=== PATIENT | female | born 1970 | race Caucasian/White ===

== ENCOUNTER 2016-12-10 13:57 | Inpatient (IN) | payer SELFPAY ==
[~2016-12-10] VITALS: Ht 160 cm; Wt 58.6 kg
[2016-12-10] MEDS ORDERED: SODIUM CHLORIDE 0.9% 1000ML 1,000 ML IV STA (14:34)
[2016-12-10] MEDS ORDERED: ONDANSETRON INJ 2 MG/ML 2 ML VIAL IV STA (14:34)
[2016-12-10] MEDS ORDERED: OPTIRAY 320 IV PRN (14:45)
--- NOTE | 2016-12-10 14:45 | EMERGENCY ROOM VISIT NOTE ---
History Report prepared by Lawsonibdorys: Manda Nguyen Under the Supervision of: Dr. Julio Cesar Arthur D.O. First contact with patient: 14:27 Chief Complaint: FALL Stated Complaint: PAIN W/BREATHING, FELL DOWNSTAIRS History of Present Illness The patient is a 46 year old female who presents to the Emergency Room with complaints of a fall that occurred last night. She reports she fell down her basement steps while holding a basket of laundry. Since then, she has been having increased right sided rib pain and pain with breathing. She denies hitting her head during the fall, any loss of consciousness, or sustaining any other injuries. She denies any headache, neck pain, abdominal pain, nausea or vomiting. She also complains of some right sided rib pain, but notes she can still walk normally. She denies any dizziness with standing. She denies any chance of being and states she is currently on her menstrual period. The patient does have a history of asthma but does not take daily medications for it. She is an occasional cigarette smoker. Source of History: patient Onset: last night Position: other (global) Timing: resolved Associated Symptoms: No LOC, No abdominal pain, No headache, No nausea, No neck pain, No vomiting Review of Systems See HPI for pertinent positives & negatives. A total of 10 systems reviewed and were otherwise negative. Past Medical & Surgical Medical Problems: (1) Asthma Social History Smoking Status: Current Some Day Smoker Alcohol Use: occasionally Drug Use: none Marital Status: Housing Status: lives with family Occupation Status: employed Current/Historical Medications Scheduled Albuterol Hfa (Ventolin Hfa), 2-4 PUFFS INH Q6H Docusate Sodium (Colace), 1 CAP PO BID Sulfamethoxazole-Trimethoprim (Bactrim Ds 800MG/160MG), 1 TAB PO BID Scheduled PRN Oxycodone/Acetaminophen 5MG/325MG (Percocet 5MG/325MG), 1-2 TABLETS PO Q4H PRN for Pain Allergies Coded Allergies: No Known Allergies (Unverified , 12/10/16) Physical Exam Vital Signs Date Time Temp Pulse Resp B/P Pulse Ox O2 Delivery O2 Flow Rate FiO2 12/10/16 16:28 71 18 136/84 93 Room Air 12/10/16 15:44 86 18 149/89 97 Non-Rebreather 15.0 12/10/16 15:44 98 Non-Rebreather 15.0 12/10/16 15:04 79 12/10/16 15:01 90 18 141/98 96 Room Air 12/10/16 14:02 36.7 96 18 113/73 96 Room Air Physical Exam GENERAL: Patient is awake, alert, very anxious and uncomfortable appearing. EYES: The conjunctivae are clear. The pupils are round and reactive. EARS, NOSE, MOUTH AND THROAT: The nose is without any evidence of any deformity. Mucous membranes are moist tongue is midline NECK: The neck is nontender and supple. RESPIRATORY: Splinting respirations noted, diminished breath sounds in the right lung field, mild tachypnea noted. CARDIOVASCULAR: Regular rate and rhythm noted there no murmurs rubs or gallops normal S1 normal S2 CHEST: Exquisite tenderness to right lateral chest wall. GASTROINTESTINAL: The abdomen is soft. Bowel sounds are present in all quadrants. RUQ tenderness to palpation, no guarding or rigidity noted. PELVIS: The Pelvis is stable. No tenderness to palpation is noted. BACK: No midline tenderness or or step-off noted range of motion in flexion extension as well as rotation no signs of muscle spasm noted MUSCULOSKELETAL/EXTREMITIES: There is no evidence of gross deformity full range of motion is noted in the hips and shoulders SKIN: There is no obvious evidence of any rash. There are no petechiae, pallor or cyanosis noted. NEUROLOGIC: Patient is awake alert and oriented x3 strength is symmetric patellar reflexes are 2+ bilaterally Medical Decision & Procedures ER Provider Diagnostic Interpretation: This CT scan was reviewed and interpreted by the radiologist and reviewed by myself. CHEST, ABDOMEN, AND PELVIS CT WITH CONTRAST IMPRESSION: 1. Large right-sided pneumothorax. No significant midline shift. 2. Nondisplaced right lateral seventh rib fracture. 3. No acute traumatic abnormality within the abdomen or pelvis. Electronically signed by: aDvid Reese M.D. 12/10/2016 3:52 PM These X-Rays were reviewed and interpreted by myself and the radiologist. CHEST ONE VIEW PORTABLE IMPRESSION: Significant decrease in size in the small right pneumothorax status post right chest tube placement. Electronically signed by: David Reese M.D. 12/10/2016 5:05 PM RIGHT HIP 2 VIEWS IMPRESSION: No fracture or dislocation within the right hip. Electronically signed by: David Reese M.D. 12/10/2016 5:07 PM Laboratory Results 12/10/16 14:50 Red Blood Count 4.36, Mean Corpuscular Volume 89.7, Mean Corpuscular Hemoglobin 31.4, Mean Corpuscular Hemoglobin Concent 35.0, Mean Platelet Volume 9.8, Neutrophils (%) (Auto) 68.9, Lymphocytes (%) (Auto) 19.3, Monocytes (%) (Auto) 10.6, Eosinophils (%) (Auto) 0.7, Basophils (%) (Auto) 0.2, Neutrophils # (Auto ) 10.82, Lymphocytes # (Auto) 3.02, Monocytes # (Auto) 1.66, Eosinophils # (Auto ) 0.11, Basophils # (Auto) 0.03 12/10/16 14:50 Test 12/10/16 14:50 12/10/16 14:56 12/10/16 15:56 White Blood Count 15.68 K/uL (4.8-10.8) Red Blood Count 4.36 M/uL (4.2-5.4) Hemoglobin 13.7 g/dL (12.0-16.0) Hematocrit 39.1 % (37-47) Mean Corpuscular Volume 89.7 fL (80-100) Mean Corpuscular Hemoglobin 31.4 pg (25-34) Mean Corpuscular Hemoglobin Concent 35.0 g/dl (32-36) Platelet Count 327 K/uL (130-400) Mean Platelet Volume 9.8 fL (7.4-10.4) Neutrophils (%) (Auto) 68.9 % Lymphocytes (%) (Auto) 19.3 % Monocytes (%) (Auto) 10.6 % Eosinophils (%) (Auto) 0.7 % Basophils (%) (Auto) 0.2 % Neutrophils # (Auto) 10.82 K/uL (1.4-6.5) Lymphocytes # (Auto) 3.02 K/uL (1.2-3.4) Monocytes # (Auto) 1.66 K/uL (0.11-0.59) Eosinophils # (Auto) 0.11 K/uL (0-0.5) Basophils # (Auto) 0.03 K/uL (0-0.2) RDW Standard Deviation 44.4 fL (36.4-46.3) RDW Coefficient of Variation 13.5 % (11.5-14.5) Immature Granulocyte % (Auto) 0.3 % Immature Granulocyte # (Auto) 0.04 K/uL (0.00-0.02) Prothrombin Time 10.4 SECONDS (9.0-12.0) Prothromb Time International Ratio 1.0 (0.9-1.1) Activated Partial Thromboplast Time 25.0 SECONDS (21.0-31.0) Partial Thromboplastin Ratio 1.0 Urine Color YELLOW Urine Appearance CLOUDY (CLEAR) Urine pH 5.5 (4.5-7.5) Urine Specific Arvin 1.020 (1.000-1.030) Urine Protein NEG (NEG) Urine Glucose (UA) NEG (NEG) Urine Ketones NEG (NEG) Urine Occult Blood 3+ (NEG) Urine Nitrite POS (NEG) Urine Bilirubin NEG (NEG) Urine Urobilinogen NEG (NEG) Urine Leukocyte Esterase MODERATE (NEG) Urine WBC (Auto) >30 /hpf (0-5) Urine RBC (Auto) 0-4 /hpf (0-4) Urine Hyaline Casts (Auto) 0 /lpf (0-5) Urine Epithelial Cells (Auto) >30 /lpf (0-5) Urine Bacteria (Auto) 4+ (NEG) Est Creatinine Clear Calc Drug Dose 73.9 ml/min Estimated GFR () 105.8 Estimated GFR (Non- 91.3 BUN/Creatinine Ratio 16.5 (10-20) Calcium Level 8.7 mg/dl (8.5-10.1) Total Bilirubin 0.6 mg/dl (0.2-1) Direct Bilirubin 0.1 mg/dl (0-0.2) Aspartate Amino Transf (AST/SGOT) 25 U/L (15-37) Alanine Aminotransferase (ALT/SGPT) 63 U/L (12-78) Alkaline Phosphatase 197 U/L (45-117) Total Protein 7.5 gm/dl (6.4-8.2) Albumin 3.5 gm/dl (3.4-5.0) Lipase 82 U/L (73-393) Bedside Hemoglobin 13.6 g/dl (12.0-16.0) Bedside Hematocrit 40 % (37-47) Bedside Sodium 144 mEq/L (135-144) Bedside Potassium 3.1 mEq/L (3.3-5.0) Bedside Chloride 107 mEq/L (101-112) Bedside Total CO2 22 mEq/l (24-31) Anion Gap 19.0 mmol/L (16-25) Bedside Blood Urea Nitrogen 13 mg/dl (7-18) Bedside Creatinine 0.6 mg/dl (0.6-1.3) Bedside Glucose (other) 96 mg/dl (70-99) Bedside Ionized Calcium (Jake) 1.12 mmol/l (1.12-1.32) Human Chorionic Gonadotropin, Qual NEG (NEG) Laboratory results per my review. Medications Administered Medications (Trade) Dose Ordered Sig/Criss Route Start Time Stop Time Status Last Admin Dose Admin Sodium Chloride (Nss 1000ml) 1,000 ml @ 999 mls/hr Q1H1M STAT IV 12/10/16 14:34 12/10/16 15:34 DC 12/10/16 14:52 999 MLS/HR Morphine Sulfate (MoRPHine SULFATE INJ) 4 mg Q15M PRN IV 12/10/16 14:45 12/10/16 18:19 DC 12/10/16 15:33 4 MG Ondansetron HCl (Zofran Inj) 4 mg NOW STAT IV 12/10/16 14:34 12/10/16 14:36 DC 12/10/16 14:52 4 MG Midazolam HCl (Versed Inj) 2 mg STK-MED ONCE .ROUTE 12/10/16 16:01 12/10/16 16:02 DC 12/10/16 16:01 1 MG Morphine Sulfate (MoRPHine SULFATE INJ) 2 mg STK-MED ONCE .ROUTE 12/10/16 16:16 12/10/16 16:18 DC 12/10/16 16:16 2 MG Oxycodone HCl (Roxicodone Immediate Rel Tab) 5 mg Q3HWA PRN PO 12/10/16 16:45 12/24/16 16:44 12/11/16 05:39 5 MG Ketorolac Tromethamine (Toradol Inj) 30 mg Q6H PRN IV 12/10/16 16:45 12/15/16 16:44 12/11/16 06:49 30 MG ED Course 1432: The patient was evaluated in room A10. A complete history and physical examination were performed. 1434: Zofran 4 mg IV, NSS 1000 ml @ 999 mls/hr IV. 1445: Morphine Sulfate 4 mg IV. 1537: I discussed the patient's case with Dr. Romo [facility] Thoracic Surgery. The patient will be further evaluated. 1558: Lidocaine HCl 20 ml IV. 1601: Versed 2 mg IV. 1616: Morphine Sulfate 2 mg IV. Medical Decision Prior records/ancillary studies reviewed. Triage Nursing notes reviewed. The patient's history was concerning for traumatic injury Differential diagnosis: Etiologies such as fracture, dislocation, intra-abdominal, pneumothorax, intrathoracic , intracranial, neurologic, as well as other traumatic pathologies were entertained. The patient is a 46-year-old female who presented to the emergency department for an evaluation of right-sided chest pain. The patient had a fall while going upstairs. She landed on the right side of her chest. She had significant right rib pain. She also have diminished breath sounds in the right lung field. A portable chest x-ray was ordered but was never done. The patient was taken to CAT scan which did reveal large right-sided pneumothorax. The patient was very stable with this pneumothorax despite the size. She was treated with a chest tube from the cardiothoracic surgeon. She was placed on oxygen. She was treated with IV fluids as well as IV pain medication in the emergency department. On subsequent reevaluation she was feeling much better. I discussed the patient's laboratory and radiographic studies with her. The patient was admitted to the hospital by the cardiothoracic surgery group. The patient had a chest tube placed in the emergency department area and she was reevaluated multiple times. Consults Time Called: 1534 Consulting Physician: Dr. Romo [facility] Thoracic Surgery Returned Call: [phone] I discussed the patient's case with Dr. Romo, [facility] Thoracic Surgery. The patient will be further evaluated. Impression Primary Impression: Pneumothorax, right Additional Impressions: Chest wall contusion Fall Traumatic pneumothorax Fracture of rib of right side Blunt injury of abdomen Scribe Attestation The scribe's documentation has been prepared under my direction and personally reviewed by me in its entirety. I confirm that the note above accurately reflects all work, treatment, procedures, and medical decision making performed by me. Departure Information Dispostion Being Evaluated By Surgeon Prescriptions Docusate Sodium (COLACE) 100 Mg Cap 1 CAP PO BID for 15 Days, #30 CAP Prov: Teddy Cardona PA 12/11/16 Oxycodone/Acetaminophen 5MG/325MG (PERCOCET 5MG/325MG) Tab 1-2 TABLETS PO Q4H Y for Pain, #25 TAB Prov: Teddy Cardona PA 12/11/16 Sulfamethoxazole-Trimethoprim (Bactrim Ds 800MG/160MG) 1 Tab Tab 1 TAB PO BID for 3 Days, #5 TAB Prov: Teddy Cardona PA 12/11/16 Referrals No Doctor, Assigned (PCP) Patient Instructions [facility] Problem Qualifiers
[2016-12-10] MEDS: MoRPHine SULFATE 4 MG/ML 1 ML CARP\\VIAL IV PRN ×2 (14:53→15:33)
[2016-12-10 14:57] LABS: BASO % 0.2 %; BASO ABS # 0.03 K/uL (0-0.2); COMPLETE YES; EOS % 0.7 %; HEMATOCRIT 39.1 % (37-47); IG% 0.3 %; LYMPH % 19.3 %; LYMPH ABS # 3.02 K/uL (1.2-3.4); MEAN CELL VOLUME 89.7 fL (80-100); MEAN CORPUSCULAR HEMOGLOBIN 31.4 pg (25-34); MEAN PLATELET VOLUME 9.8 fL (7.4-10.4); MONO % 10.6 %; NEUT % 68.9 %; PLATELET COUNT 327 K/uL (130-400); RED BLOOD COUNT 4.36 M/uL (4.2-5.4); WHITE BLOOD COUNT 15.68 K/uL (4.8-10.8)
[2016-12-10 15:08] LABS: ISTAT CREATININE 0.6 mg/dl (0.6-1.3); ISTAT HEMOGLOBIN 13.6 g/dl (12.0-16.0); ISTAT IONIZED CALCIUM 1.12 mmol/l (1.12-1.32)
[2016-12-10 15:12] LABS: URINE APPEARANCE CLOUDY (CLEAR); URINE BILIRUBIN NEG (NEG); URINE COLOR YELLOW; URINE EPITHELIAL CELL AUTO >30 /lpf (0-5); URINE NITRITE POS (NEG); URINE PH 5.5 (4.5-7.5); UROBILINOGEN NEG (NEG)
[2016-12-10 15:14] LABS: MANUAL MICROSCOPIC REQUIRED? NO; REVIEW REQ? YES
[2016-12-10 15:15] LABS: BUN/CREATININE RATIO 16.5 (10-20); CALCIUM 8.7 mg/dl (8.5-10.1); CREATININE 0.77 mg/dl (0.60-1.20); POTASSIUM 3.2 mmol/L (3.5-5.1)
[2016-12-10] MEDS ORDERED: VNTHFA/IN INH (15:35)
--- NOTE | 2016-12-10 15:54 | DIAGNOSTIC IMAGING REPORT ---
CHEST, ABDOMEN, AND PELVIS CT WITH CONTRAST CT DOSE: 721.39 mGy.cm HISTORY: fall, right chest and abdominal pain TECHNIQUE: Multiaxial CT images of the chest, abdomen, and pelvis were performed following the intravenous administration of contrast as well as oral contrast for the abdomen and pelvis CT. COMPARISON: None. FINDINGS: Right lateral seventh rib fracture. There is associated large right pneumothorax. No significant midline shift. The mediastinal vascular structures are within normal limits. No mediastinal hilar lymphadenopathy. No pleural or pericardial effusions. Mild emphysema with a few scattered tiny blebs within the lungs. Dominant apical bleb measures 5 mm. Patchy densities within the right lung likely represent atelectasis. The central airways are patent. No pneumoperitoneum or pneumatosis. No fractures identified within the foci is osseous structures of the abdomen and pelvis. The liver, spleen, adrenal glands, pancreas, and gallbladder are unremarkable. Multiple bilateral renal calculi. No hydronephrosis. There are few subcentimeter bilateral renal hypodense lesions with the largest in the right kidney measuring 6 mm. Technically these are too small to characterize but favor cysts. Normal bladder, uterus, bilateral ovaries. No pelvic free fluid. No bowel wall thickening or obstruction. Normal appendix. IMPRESSION: 1. Large right-sided pneumothorax. No significant midline shift. 2. Nondisplaced right lateral seventh rib fracture. 3. No acute traumatic abnormality within the abdomen or pelvis. Electronically signed by: David Reese M.D. 12/10/2016 3:52 PM Dictated Date/Time: 12/10/2016 3:37 PM
[2016-12-10] MEDS ORDERED: LIDOCAINE HCL 1% 20 ML VIAL ONE (15:58)
[2016-12-10] MEDS ORDERED: MIDAZOLAM HCL 1 MG/ML 2ML VIAL ONE (16:01)
[2016-12-10] MEDS ORDERED: MoRPHine SULFATE 2 MG/ML CARP ONE (16:16)
[2016-12-10 16:25] LABS: PREG INTERNAL NEGATIVE QC NEG CLEAR BACKGROUND; PREG INTERNAL POSITIVE QC POS CONTROL LINE
[2016-12-10] MEDS ORDERED: KETOROLAC TROMETHAMINE 30 MG/ML VIAL IV PRN (16:45)
[2016-12-10] MEDS ORDERED: MoRPHine SULFATE 2 MG/ML CARP IV PRN (16:45)
[2016-12-10] MEDS ORDERED: ONDANSETRON INJ 2 MG/ML 2 ML VIAL IV PRN (16:45)
[2016-12-10] MEDS ORDERED: NURSING VERBAL MED ORDER ONE (16:45)
--- NOTE | 2016-12-10 17:07 | DIAGNOSTIC IMAGING REPORT ---
CHEST ONE VIEW PORTABLE HISTORY: fall COMPARISON: Chest CT . FINDINGS: Interval placement right-sided chest tube which terminates along the medial aspect of the mid right hemithorax. A small right pneumothorax persists with a pleural gap of 8 mm. Linear density at the right lung base consistent with subsegmental atelectasis. The left lung is clear. The heart is normal in size. IMPRESSION: Significant decrease in size in the small right pneumothorax status post right chest tube placement. Electronically signed by: David Reese M.D. 12/10/2016 5:05 PM Dictated Date/Time: 12/10/2016 5:04 PM
--- NOTE | 2016-12-10 17:09 | DIAGNOSTIC IMAGING REPORT ---
RIGHT HIP 2 VIEWS HISTORY: Right hip pain after fall. COMPARISON: None. FINDINGS: There is no fracture or dislocation. Mild lateral soft tissue swelling. No radiopaque foreign bodies. Contrast within the bladder from the recent CT. This partially obscures the right superior pubic ramus. IMPRESSION: No fracture or dislocation within the right hip. Electronically signed by: David Reese M.D. 12/10/2016 5:07 PM Dictated Date/Time: 12/10/2016 5:06 PM
[2016-12-10] MEDS ORDERED: CEFTRIAXONE SOD INJ 1 GM ADDVIAL IV STA (17:10)
[2016-12-10 17:12] LABS: PROTHROMBIN TIME (PATIENT) 10.4 SECONDS (9.0-12.0)
[2016-12-10 17:15] VITALS: O2SAT 94; Ht 160 cm; Wt 58.6 kg
--- NOTE | 2016-12-10 19:33 | HISTORY & PHYSICAL EXAMINATION ---
DATE OF ADMISSION: 12/10/2016 REASON FOR ADMISSION: Blunt chest trauma with right pneumothorax. HISTORY OF PRESENT ILLNESS: This is a 46-year-old smoker who is an GORE [employer]. She works at [employer]. She fell down the steps at her house and suffered multiple injuries. She has got contusion of her face and her jaw. States she was holding a basket of laundry and had right-sided pain with breathing. She had no loss of consciousness. She denies any abdominal complaints. She smokes about half-pack of cigarettes a day, started smoking in her teens and has smoked on and off again. The only past medical history that is significant is the fact that she was treated for asthma. PAST MEDICAL HISTORY: 1. Asthma. 2. Cigarette smoking. PAST SURGICAL HISTORY: 2, para 2. MEDICATIONS: Albuterol inhaler. ALLERGIES: No known drug allergies. 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 She is and lives with her family in [place]. She has a 7-year-old child at home and a 21-year-old child who is a student at [employer]. FAMILY MEDICAL HISTORY: Her children are healthy. REVIEW OF SYSTEMS: Prior to her injury which occurred about 16 hours ago, she had no weight loss. She denied any loss of consciousness. She had no neurologic symptoms. She had no GI or complaints. She denied any skin breakdown. She has had no joint swelling. She has had no visual or auditory symptoms. PHYSICAL EXAMINATION: GENERAL: This is a well-developed, well-nourished, 5 feet 3 inches, 130 pound white female who is awake, alert and oriented. HEENT: Her extraocular movements are intact. Pupils are equal, round and reactive. Sclerae are anicteric. She has a small reddened area along her right temporal area and a contusion along her left mandibular ridge. Her tongue is midline. She has braces or her lower teeth. She has no oral mucosal lesions. NECK: Supple. She has no tracheal deviation. She has no supraclavicular or cervical lymphadenopathy, neck vein distention, thyromegaly or lymphadenopathy. LUNGS: She has decreased breath sounds on the right. She is tender along her anterior lateral right chest. HEART: She has a regular rate and rhythm. ABDOMEN: Soft, nontender. EXTREMITIES: She has good femoral pulses. Good pedal pulses. She has no joint effusions. She has no peripheral edema. NEUROLOGIC: She is completely intact. DATA: I reviewed her CT scan and I do not see a rib fracture; however, she has a large pneumothorax. ASSESSMENT AND PLAN: Blunt left chest trauma with pneumothorax. We are going to proceed with insertion of a chest tube and admit the patient to the hospital. DEIDRE
[2016-12-10] MEDS: OXYCODONE HCL IR 5 MG TAB (IMMEDIATE RELEASE) PO PRN (19:51)
[2016-12-10] MEDS: ALBUTEROL HFA 8 GM INHALER INH SCH (19:52)
[2016-12-10 23:21] VITALS: BP 118/76; PULSE 70; TEMP 36.9; O2SAT 94
--- NOTE | 2016-12-11 00:15 | OPERATIVE REPORT ---
DATE OF OPERATION: 12/10/2016 PREOPERATIVE DIAGNOSIS: Large right pneumothorax. POSTOPERATIVE DIAGNOSIS: Same. PROCEDURE: Insertion of right 24-Lebanese chest tube. SURGEON: Dr. Romo. ANESTHESIA: Local. SPECIFICS OF PROCEDURE: The patient in a supine position, her right arm was raised above her head. She was prepped and draped in the usual sterile fashion. A 25-gauge needle was used with 1% Xylocaine without epinephrine to raise a skin wheal. A 1 cm incision was made. Then, using a long needle with Xylocaine, I injected the deeper muscle layers and then went above the overlying rib and injected the pleura. I got free flowing air and placed a long guidewire through the needle and needle removed. Introducer was used to dilate up the insertion site and then removed and then the 24-Lebanese chest tube with an obturator was placed over the guidewire toward the apex. I then removed the guidewire and the inner cannula. 2-0 silk suture was used to hold the chest tube in place. She did have an air leak. I did not attach her to suction right away. She had some reexpansion pain. Chest x-ray is pending at this time. We placed antimicrobial dressings on this. She tolerated it quite well. I attest to the content of the Intraoperative Record and any orders documented therein. Any exceptio ns are noted below.
[2016-12-11] MEDS: OXYCODONE HCL IR 5 MG TAB (IMMEDIATE RELEASE) PO PRN ×2 (01:15→05:39)
[2016-12-11 03:40] VITALS: BP 123/80; PULSE 61; TEMP 36.8; O2SAT 93
[2016-12-11 07:51] VITALS: BP 100/64; PULSE 68; TEMP 37; O2SAT 91
[2016-12-11 08:10] VITALS: O2SAT 93
[2016-12-11] MEDS ORDERED: ENOXAPARIN 40 MG/0.4 ML SYR SQ SCH (09:00)
[2016-12-11] MEDS: ALBUTEROL HFA 8 GM INHALER INH SCH (09:17)
[2016-12-11 11:53] VITALS: BP 104/64; PULSE 63; TEMP 36.7; O2SAT 94
[2016-12-11] MEDS ORDERED: SULFAMETHOXAZOLE/TRIMETHOPRIM DS 800/160MG TAB PO ONE (14:59)
[2016-12-11] MEDS ORDERED: DOCU-94 PO (15:03)
[2016-12-11] MEDS ORDERED: SULF800T23 PO (15:03)
[2016-12-11] MEDS ORDERED: OXYC-57 PO (15:03)
--- NOTE | 2016-12-11 15:11 | Discharge Instructions ---
Discharge Instructions Admission Reason for Admission: Pneumothorax, Right Discharge Discharge Diagnosis / Problem: Pneumothorax, Right Discharge Goals Goal(s): Decrease discomfort, Improve function Activity Recommendations Activity Limitations: as noted below Lifting Limitations: none . Instructions / Follow-Up Instructions / Follow-Up 1. Do not fly or SCUBA dive until cleared to do so by Dr. Romo. 2. Do not drive if taking percocet 3. Office follow-up with Dr. Romo in 1-2 weeks. Office will call you with date and time of appointment. You will need to go to hospital before appointment for a chest x-ray. 4. You were noted to have a urinary tract infection wile in hospital. You were prescribed an antibiotic for this. Take the entire course of antibiotic and follow-up with your family physician concerning this issue. Current Hospital Diet Patient's current hospital diet: Regular Diet Discharge Diet Recommended Diet: Regular Diet Procedures Procedures Performed: Right Chest Tube Insertion Pending Studies Studies pending at discharge: no Medical Emergencies . Who to Call and When: Medical Emergencies: If at any time you feel your situation is an emergency, please call 911 immediately. . Non-Emergent Contact Non-Emergency issues call your: Surgeon Call Non-Emergent contact if: you have a fever, your pain is not controlled, wound has increased drainage Worsening Shortness of Breath . "Provider Documentation" section prepared by Teddy Cardona. VTE Core Measure Inpt VTE Proph given/why not?: Enoxaparin (Lovenox)SQ
[2016-12-11 15:21] VITALS: BP 126/81; PULSE 63; TEMP 37; O2SAT 94
--- NOTE | 2016-12-11 15:22 | DIAGNOSTIC IMAGING REPORT ---
SINGLE VIEW CHEST CLINICAL HISTORY: Status post chest tube removal. FINDINGS: An AP, portable, upright chest radiograph is compared to chest x-ray and chest CT dated 12/10/16. The examination is degraded by portable technique and patient rotation. The right-sided chest tube has been removed. The cardiomediastinal silhouette is unremarkable. There are low lung volumes with mild bibasilar atelectasis. No airspace consolidation or large pleural effusion is identified. No pneumothorax is seen. The bony thorax is grossly intact. IMPRESSION: 1. The right-sided chest tube has been removed. No residual pneumothorax is identified. 2. There is bibasilar atelectasis. The lungs are otherwise clear. Electronically signed by: Abdelrahman Louie M.D. 12/11/2016 3:20 PM Dictated Date/Time: 12/11/2016 3:19 PM
[2016-12-11 16:37] VITALS: BP 126/81; PULSE 63; TEMP 37; O2SAT 94
[2016-12-11] MEDS ORDERED: SULFAMETHOXAZOLE/TRIMETHOPRIM DS 800/160MG TAB PO SCH (21:00)
--- NOTE | 2016-12-13 12:52 | Discharge Summary ---
Discharge Summary Admission Date: Dec 10, 2016 at 16:47 Discharge Date: Dec 11, 2016 Discharge Disposition: Home Principal Diagnosis: Right Pneumothorax Problems/Secondary Diagnoses: 1. Right Pneumothorax 2. UTI Procedures: Right Chest Tube Insertion Consultations: none Medication Reconciliation New Medications: Docusate Sodium (Colace) 100 Mg Cap 1 CAP PO BID for 15 Days, #30 CAP Oxycodone/Acetaminophen 5MG/325MG (Percocet 5MG/325MG) Tab 1-2 TABLETS PO Q4H PRN for Pain, #25 TAB Sulfamethoxazole-Trimethoprim (Bactrim Ds 800MG/160MG) 1 Tab Tab 1 TAB PO BID for 3 Days, #5 TAB Continued Medications: Albuterol Hfa (Ventolin Hfa) 200 Puffs/10709 Mcg Aers 2-4 PUFFS INH Q6H, #1 INHALER Discharge Exam Review of Systems: Constitutional: No chills, No fever Respiratory: No cough, No shortness of breath Cardiovascular: No chest pain Abdomen: No nausea, No pain, No vomiting Genitourinary - Female: No dysuria, No urinary frequency Physical Exam: General Appearance: WD/WN, no apparent distress Respiratory/Chest: lungs clear, normal breath sounds, no respiratory distress, no accessory muscle use Cardiovascular: regular rate, rhythm Abdomen / GI: soft Extremities: no calf tenderness Neurologic/Psychiatric: alert, oriented x 3 Hospital Course 46 year old female with traumatic pneumothorax (suffered after falling) -CT scan at time of admission showed large right pneumothorax and right 7th rib fracture (non-displaced) -right sided chest tube placed: -removed after 24 hours as pneumothorax resolved -post-pull CXR showed no pneumothorax -pain control measures implemented for rib fracture UTI -noted at time of admission -pt. asymptomatic -culture showed fox-sensitive E.Coli -pt. prescribed 3 day course of oral bactrim -pt. instructed to call PCP if this condition becomes symptomatic Total Time Spent: Greater than 30 minutes This includes examination of the patient, discharge planning, medication reconciliation, and communication with other providers. Discharge Instructions Please refer to the electronic Patient Visit Report (Discharge Instructions) for additional information. Follow-Up 1. Dr. Romo in 1-2 weeks with CXR. Office to call with date and time of appointment. Additional Copies To Gallo Romo MD
== END 2016-12-11 17:00 | disposition home or self-care (01) | DRG 200 ==
LOC: ENRESERVTM → ENRESERVDT → C.EDB 13:58 → C.MSN 16:47
PROVIDERS: ADMIT Surgery; ATTEND Surgery
PROC: 0W9930Z Drainage of Right Pleural Cavity with Drainage Device, Percutaneous Approach (ICD-10-PCS; principal; 2016-12-10)
DX: S27.0XXA Traumatic pneumothorax, initial encounter (principal); N39.0 Urinary tract infection, site not specified; S22.31XA Fracture of one rib, right side, initial encounter for closed fracture; S29.8XXA Other specified injuries of thorax, initial encounter; W10.9XXA Fall (on) (from) unspecified stairs and steps, initial encounter; J45.909 Unspecified asthma, uncomplicated; F17.210 Nicotine dependence, cigarettes, uncomplicated; B96.20 Unspecified Escherichia coli [E. coli] as the cause of diseases classified elsewhere; S20.219A Contusion of unspecified front wall of thorax, initial encounter; S00.83XA Contusion of other part of head, initial encounter; S39.81XA Other specified injuries of abdomen, initial encounter; Z79.899 Other long term (current) drug therapy; Z79.891 Long term (current) use of opiate analgesic; Y92.009 Unspecified place in unspecified non-institutional (private) residence as the place of occurrence of the external cause